=== PATIENT | female | born 1965 | race Caucasian/White ===

== ENCOUNTER 2017-02-13 14:32 | Emergency (ER) | payer SELFPAY ==
[~2017-02-13] VITALS: Ht 172.7 cm; Wt 78.9 kg
--- NOTE | ~2017-02-13 | CR282 ---
[facility] A Service of [facility] & [facility] RADIOLOGY TEXT RESULTS PATIENT: LIN UPTON LOCATION: [facility] : 69 UNIT #: [id number] AGE: [address]: Cheryl Cisneros SEX: F ORDER DR: [id number] [facility] [address] [place], [place] [address] [id number] E MR#: [id number] Acc #: [id number] NAME: LIN UPTON : 1965 SEX: F STUDY DATE/TIME: 02/13/2017 15:13 UNIT: [facility] ROOM: STUDY DESCRIPTION: CR Wrist Min 3 View Rt Attending Physician: Cheryl Cisneros P.A.-C. Ordering Physician: Cheryl Cisneros P.A.-C. Primary Care Physician: Lonnie Pulido M.D. MEDICAL IMAGING REPORT This report is preliminary unless electronic signature is present EXAM Right wrist, 02/13. INDICATION Wrist pain after trauma today. FINDINGS Wrist evaluation in multiple projections shows normal mineralization of the bony structures about the wrist and satisfactory articular relationship of the radius and ulna to the proximal carpal row and of the distal carpal segments to the metacarpal bases. There is no indication of fracture or dislocation, and no soft tissue radiopaque foreign body is present. No congenital defects are apparent. IMPRESSION Normal wrist. Dictated by... Ej Bay Jr., M.D. THIS IS AN ELECTRONICALLY VERIFIED REPORT Ej Bay Jr., M.D. at 02/14/2017 8:30 AM MILLY/maria esther TD: 02/14/2017 02:24 JOB #: [id number] MEDICAL IMAGING REPORT Page 1 of 1 COPY
--- NOTE | ~2017-02-13 | CR230 ---
[facility] A Service of [facility] & [facility] RADIOLOGY TEXT RESULTS PATIENT: LIN UPTON LOCATION: [facility] : 69 UNIT #: [id number] AGE: [address]: Cheryl Cisneros SEX: F ORDER DR: [id number] [facility] [address] [place], [place] [address] [id number] E MR#: [id number] Acc #: [id number] NAME: LIN UPTON : 1965 SEX: F STUDY DATE/TIME: 02/13/2017 15:07 UNIT: [facility] ROOM: STUDY DESCRIPTION: CR Shoulder Min 2 View Rt Attending Physician: Cheryl Cisneros P.A.-C. Ordering Physician: Cheryl Cisneros P.A.-C. Primary Care Physician: Lonnie Pulido M.D. MEDICAL IMAGING REPORT This report is preliminary unless electronic signature is present EXAM Right shoulder, 02/13. INDICATION Shoulder pain after trauma today. FINDINGS Three views of the right shoulder are compared with 10/22/2009. 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 There is an old fracture of the humeral neck. No acute fracture is seen, there is no dislocation. IMPRESSION No acute findings in the shoulder. There is an old proximal humerus fracture and there is chronic widening of the AC joint. Dictated by... Ej Bay Jr., M.D. THIS IS AN ELECTRONICALLY VERIFIED REPORT Ej Bay Jr., M.D. at 02/14/2017 8:30 AM MILLY/maria esther TD: 02/14/2017 02:09 JOB #: [id number] MEDICAL IMAGING REPORT Page 1 of 1 COPY
[~2017-02-13 14:32] MED LIST: BACITRACIN15 GM TP; BACTRIM DS TABL1 TA1 PO; BACTROBAN22 GM TP; CALCIUM STOOL240 M1 PO; CLEOCIN PO; DAKIN'S MODIF1000 ML EXT; K-DUR20 ME1 PO; KEPPRA500 MG PO; LORTAB 10-5001 EACH PO; MIRALAX17 GM PO; NEURONTIN PO; OXYCODONE-ACET1 EACH PO; PHENERGAN25 M1 PO; PROVENTIL17 GM INH; REGLAN PO; SANTYL15 G1 TP; TAMIFLU75 M1 PO; TUSSIONEX PENN473 ML PO; VICODIN PO; ZITHROMAX1 G/PKT PO
== END 2017-02-13 15:56 | disposition home or self-care (01) ==
LOC: CFTX 14:32 → CED 14:32 → CFTX 15:49
DX: S63.521A Sprain of radiocarpal joint of right wrist, initial encounter (principal); F17.210 Nicotine dependence, cigarettes, uncomplicated; F32.9 Major depressive disorder, single episode, unspecified; B19.20 Unspecified viral hepatitis C without hepatic coma; Z88.5 Allergy status to narcotic agent; Z91.040 Latex allergy status; Z88.8 Allergy status to other drugs, medicaments and biological substances; W22.8XXA Striking against or struck by other objects, initial encounter; Y92.009 Unspecified place in unspecified non-institutional (private) residence as the place of occurrence of the external cause
CPT/HCPCS: 29125; 73030; 73110; 99283